=== PATIENT | male | born 1965 | race Caucasian/White ===

== ENCOUNTER 2019-08-16 16:30 | Emergency (ER) | payer OTHER ==
[2019-08-16 16:36] VITALS: TEMP 97.9
[2019-08-16 17:14] LABS: Basophils # (A) 0.2 k/uL (0-0.2); Basophils % (A) 3 %; Eosinophils # (A) 0.8 k/uL (0-0.7); Eosinophils % (A) 10 %; HCT 46.2 % (39.0-53.0); HGB 15.4 gm/dL (13.0-17.5); Lymphocytes # (A) 1.9 k/uL (1.0-4.8); Lymphocytes % (A) 23 %; MCH 30.8 pg (25.0-35.0); MCHC 33.3 g/dL (31.0-37.0); MCV 92.3 fL (80.0-100.0); Monocytes # (A) 0.4 k/uL (0-1.0); Monocytes % (A) 5 %; Neutrophils # (A) 4.8 k/uL (1.3-7.7); Neutrophils % (A) 59 %; Platelet Count 337 k/uL (150-450); RBC 5.01 m/uL (4.30-5.90); RDW 12.7 % (11.5-15.5); WBC 8.2 k/uL (3.8-10.6)
[2019-08-16 17:30] LABS: ALT 30 U/L (21-72); AST 27 U/L (17-59); African American GFR (CKD) >90 (>60 ml/min/1.73 sqM); Albumin 4.2 g/dL (3.5-5.0); Alkaline Phosphatase 121 U/L (38-126); Anion Gap 8 mmol/L; Blood Urea Nitrogen 12 mg/dL (9-20); Calcium 9.1 mg/dL (8.4-10.2); Carbon Dioxide 25 mmol/L (22-30); Chloride 110 mmol/L (98-107); Glucose 115 mg/dL (74-99); Potassium 4.3 mmol/L (3.5-5.1); Sodium 143 mmol/L (137-145); Total Bilirubin 0.3 mg/dL (0.2-1.3); Total Protein 6.7 g/dL (6.3-8.2)
--- NOTE | 2019-08-16 17:41 | CT ---
EXAMINATION TYPE: CT brain wo con DATE OF EXAM: 08/16/2019 COMPARISON: None INDICATION: left sided weakness DLP: 1193.9 mGycm, Automated exposure control for dose reduction was used. CONTRAST: None CT of the brain is performed utilizing 3 mm thick sections through the posterior fossa and 3 mm thick sections through the remaining calvarium. Study is performed within 24 hours of arrival to the hosp [facility]. No abnormal hyperdensity is present to suggest an acute intracranial hemorrhage. No mass lesion is evident. No acute infarcts are evident. Ventricles and sulci are appropriate for the patient age. Paranasal sinuses and mastoid air cells within the [id number] are clear. IMPRESSIONS: 1. Normal CT Brain
--- NOTE | 2019-08-16 17:44 | XR ---
EXAMINATION TYPE: XR chest 2V DATE OF EXAM: 08/16/2019 COMPARISON: None INDICATION: Altered mental status TECHNIQUE: Frontal and lateral views of the chest are obtained. FINDINGS: The heart size is normal. The pulmonary vasculature is normal. The lungs are clear. IMPRESSION: 1. No acute pulmonary process.
[2019-08-16 17:45] LABS: INR 0.9 (<1.2); Partial Thromboplastin Time 23.8 sec (22.0-30.0); Prothrombin Time 10.1 sec (9.0-12.0)
--- NOTE | 2019-08-16 18:41 | ED ---
General Adult HPI - General Chief complaint: Neuro Symptoms/Deficit Stated complaint: Left Side Numbness Time Seen by Provider: 08/16/19 16:35 Source: patient Mode of arrival: wheelchair Limitations: no limitations - History of Present Illness Initial comments: The patient is a 53-year-old male who presents emergency department with reported paresthesias in his left upper extremity. He states he does have a history of TIA approximate 7 years ago. He does not take any medications. States that he continues to smoke and drink and is concerned that he is having a stroke. He admits to mild left upper extremity weakness. The patient is right-handed. He also admits that he has been drooling a little bit from the left side of his mouth. Denies any confusion or slurred speech. No headaches or visual changes. Denies any numbness or tingling in his left lower extremity. Denies any chest pain or shortness breath. No ripping or tearing sensation to his back. Denies any neck pain or paresthesias involve all 5 fingers and radiates up to the patient elbow. No fevers or chills. There are no other alleviating, precipitating or modifying factors. - Related Data Home Medications Medication Instructions Recorded Confirmed No Known Home Medications 08/16/19 08/16/19 Allergies Allergy/AdvReac Type Severity Reaction Status Date / Time No Known Allergies Allergy Verified 08/16/19 17:13 Review of Systems ROS Statement: Those systems with pertinent positive or pertinent negative responses have been documented in the HPI. ROS Other: All systems not noted in ROS Statement are negative. Past Medical History Additional Past Medical History / Comment(s): tia's History of Any Multi-Drug Resistant Organisms: None Reported Past Surgical History: No Surgical Hx Reported Past Psychological History: No Psychological Hx Reported Smoking Status: Current every day smoker Past Alcohol Use History: None Reported Past Drug Use History: Cocaine General Exam Limitations: no limitations General appearance: alert, in no apparent distress Head exam: Present: atraumatic, normocephalic, normal inspection Eye exam: Present: normal appearance, PERRL, EOMI. Absent: scleral icterus, conjunctival injection, periorbital swelling ENT exam: Present: normal exam, mucous membranes moist Neck exam: Present: normal inspection. Absent: tenderness, meningismus, lymp hadenopathy Respiratory exam: Present: normal lung sounds bilaterally. Absent: respiratory distress, wheezes, rales, rhonchi, stridor Cardiovascular Exam: Present: regular rate, normal rhythm, normal heart sounds. Absent: systolic murmur, diastolic murmur, rubs, gallop, clicks GI/Abdominal exam: Present: soft, normal bowel sounds. Absent: distended, tenderness, guarding, rebound, rigid Extremities exam: Present: normal inspection, full ROM, normal capillary refill. Absent: tenderness, pedal edema, joint swelling, calf tenderness Back exam: Present: normal inspection Neurological exam: Present: alert, oriented X3, CN II-XII intact Psychiatric exam: Present: normal affect, normal mood Skin exam: Present: warm, dry, intact, normal color. Absent: rash Course Vital Signs 08/16/19 08/16/19 08/16/19 16:33 16:49 17:00 Temperature 97.9 F Pulse Rate 72 78 72 Respiratory 18 24 21 Rate Blood Pressure 116/60 108/82 O2 Sat by Pulse 96 96 95 Oximetry 08/16/19 08/16/19 08/16/19 17:30 18:00 19:19 Temperature 97.9 F Pulse Rate 63 74 Respiratory 19 18 20 Rate Blood Pressure 98/80 98/80 120/76 O2 Sat by Pulse 94 L 98 Oximetry EKG Findings - EKG Comments: EKG Findings:: EKG demonstrates a normal sinus rhythm with ventricular rate 75. VA interval 126. QRS 86. QTC 442. There are no acute elevations or depressions concerning for ischemic changes Medical Decision Making - Medical Decision Making Upon arrival the patient is placed into room 1. As he has been having symptoms for the past week I do not activate a code stroke. I did recommend laboratory studies and a CT of the patient's brain. CBC, CMP and coags are unremarkable. Troponin is negative. The patient is sent over for a CT of his brain as well as CT angios which demonstrates no flow limiting stenosis. Normal jena of Jacobsen. I also performed a chest x-ray which demonstrates no acute cardiopulmo nary process. I did reevaluate the patient. He continues to complain of symptoms. I did recommend hospital admission for neurology evaluation and possible MRI. The patient refused stating that he needed to go home. I discussed the diagnosis, differential and treatment options. I did inform him of the risks of leaving and the patient is made aware. Risks include permanent disability and even . Patient understands this. He states that he will return to the emergency department when he is able to be admitted. Patient was discharged home with a guarded prognosis - Lab Data Result diagrams: 08/16/19 16:45 08/16/19 16:45 Lab Results 08/16/19 08/16/19 08/16/19 Range/Units 16:45 16:45 16:45 WBC 8.2 (3.8-10.6) k/uL RBC 5.01 (4.30-5.90) m/uL Hgb 15.4 (13.0-17.5) gm/dL Hct 46.2 (39.0-53.0) % MCV 92.3 (80.0-100.0) fL MCH 30.8 (25.0-35.0) pg MCHC 33.3 (31.0-37.0) g/dL RDW 12.7 (11.5-15.5) % Plt Count 337 (150-450) k/uL Neutrophils % 59 % Lymphocytes % 23 % Monocytes % 5 % Eosinophils % 10 % Basophils % 3 % Neutrophils # 4.8 (1.3-7.7) k/uL Lymphocytes # 1.9 (1.0-4.8) k/uL Monocytes # 0.4 (0-1.0) k/uL Eosinophils # 0.8 H (0-0.7) k/uL Basophils # 0.2 (0-0.2) k/uL PT 10.1 (9.0-12.0) sec INR 0.9 (<1.2) APTT 23.8 (22.0-30.0) sec Sodium 143 (137-145) mmol/L Potassium 4.3 (3.5-5.1) mmol/L Chloride 110 H (98-107) mmol/L Carbon Dioxide 25 (22-30) mmol/L Anion Gap 8 mmol/L BUN 12 (9-20) mg/dL Creatinine 0.76 (0.66-1.25) mg/dL Est GFR (CKD-EPI)AfAm >90 (>60 ml/min/1.73 sqM) Est GFR (CKD-EPI)NonAf >90 (>60 ml/min/1.73 sqM) Glucose 115 H (74-99) mg/dL Calcium 9.1 (8.4-10.2) mg/dL Total Bilirubin 0.3 (0.2-1.3) mg/dL AST 27 (17-59) U/L ALT 30 (21-72) U/L Alkaline Phosphatase 121 (38-126) U/L Troponin I (0.000-0.034) ng/mL Total Protein 6.7 (6.3-8.2) g/dL Albumin 4.2 (3.5-5.0) g/dL 08/16/19 Range/Units 16:45 WBC (3.8-10.6) k/uL RBC (4.30-5.90) m/uL Hgb (13.0-17.5) gm/dL Hct (39.0-53.0) % MCV (80.0-100.0) fL MCH (25.0-35.0) pg MCHC (31.0-37.0) g/dL RDW (11.5-15.5) % Plt Count (150-450) k/uL Neutrophils % % Lymphocytes % % Monocytes % % Eosinophils % % Basophils % % Neutrophils # (1.3-7.7) k/uL Lymphocytes # (1.0-4.8) k/uL Monocytes # (0-1.0) k/uL Eosinophils # (0-0.7) k/uL Basophils # (0-0.2) k/uL PT (9.0-12.0) sec INR (<1.2) APTT (22.0-30.0) sec Sodium (137-145) mmol/L Potassium (3.5-5.1) mmol/L Chloride (98-107) mmol/L Carbon Dioxide (22-30) mmol/L Anion Gap mmol/L BUN (9-20) mg/dL Creatinine (0.66-1.25) mg/dL Est GFR (CKD-EPI)AfAm (>60 ml/min/1.73 sqM) Est GFR (CKD-EPI)NonAf (>60 ml/min/1.73 sqM) Glucose (74-99) mg/dL Calcium (8.4-10.2) mg/dL Total Bilirubin (0.2-1.3) mg/dL AST (17-59) U/L ALT (21-72) U/L Alkaline Phosphatase (38-126) U/L Troponin I <0.012 (0.000-0.034) ng/mL Total Protein (6.3-8.2) g/dL Albumin (3.5-5.0) g/dL Disposition Clinical Impression: Paresthesia of left upper extremity Disposition: HOME SELF-CARE Condition: Serious Instructions (If sedation given, give patient instructions): Paresthesia (ED) Additional Instructions: I recommended hospital admission. You need to follow up with your primary care physician in 2-4 days. Return to the emergency for any new or worsening symptoms Is patient prescribed a controlled substance at d/c from ED?: No Referrals: None,Stated [Primary Care Provider] - 1-2 days Time of Disposition: 20:59
[2019-08-16 19:19] VITALS: BP 120/76; PULSE 74; RESP 20
--- NOTE | 2019-08-16 19:25 | CT ---
EXAMINATION TYPE: CT angio head neck DATE OF EXAM: 08/16/2019 HISTORY: left sided weakness COMPARISON: None CT DLP: 506.9 mGycm. Automated Exposure Control for Dose Reduction was Utilized. TECHNIQUE: CTA scan of the neck is performed with IV Contrast, patient injected with 65cc mL of Isov ue 370, axial images are obtained, coronal and sagittal reformatted images are reviewed. Three-D yenni nstructed images are created on an independent workstation and reviewed. Source images are reviewed. FINDINGS: Carotid/Vascular Structures: There is a three-vessel arch. Atheromatous plaquing is at the carotid bi furcations. No significant flow-limiting stenosis is evident. Vertebral arteries are codominant. Cervical of Jacobsen: Vertebral basilar system appears normal. Posterior cerebral vasculature is unrema rkable. Internal carotid arteries bifurcate normally into A1 and M1 segments. A2 segments are normal. The anterior communicating artery is patent. Posterior communicating arteries are not identified. IMPRESSION: 1. No flow-limiting stenosis bilateral carotid bifurcations. 2. Normal viejas of Jacobsen
== END 2019-08-16 21:12 | disposition home or self-care (01) ==
LOC: EC 16:30
DX: R20.2 Paresthesia of skin (principal); R29.898 Other symptoms and signs involving the musculoskeletal system; R29.810 Facial weakness; F17.200 Nicotine dependence, unspecified, uncomplicated; Z86.73 Personal history of transient ischemic attack (TIA), and cerebral infarction without residual deficits; Z53.20 Procedure and treatment not carried out because of patient's decision for unspecified reasons
CPT/HCPCS: 99284; 36415; 93005; 80053; 84484; 85025; 85610; 85730; 71046; 70496; 70450; 70498; Q9967

== ENCOUNTER 2019-08-29 17:00 | Emergency (ER) | payer OTHER ==
[2019-08-29] MEDS ORDERED: IPRATROPIUM-ALBUTEROL 3 ML NEB INHALATION STA ×2 (17:16→17:17)
[2019-08-29] MEDS ORDERED: predniSONE 20 MG TAB PO STA (17:16)
--- NOTE | 2019-08-29 17:25 | ED ---
General Adult HPI - General Chief complaint: Shortness of Breath Stated complaint: SOB Time Seen by Provider: 08/29/19 17:08 Source: patient Mode of arrival: ambulatory Limitations: no limitations - History of Present Illness Initial comments: Patient presents to the ED complaining of feeling dyspneic since last night. Patient also states that he has had a cough productive of green-colored sputum for the past 2 days. Patient also admits to having diffuse chest pain when coughing. Patient states that he has been a 3-5 pack-a-day smoker for the past 35 years. Patient denies fever or chills, headache, neck/arm/jaw/back pain, hemoptysis, palpitations, dizziness or lightheadedness, nausea/vomiting/diaphoresis, abdominal pain, bloody or melanotic stool, decreased urine output or urinary symptoms, leg or calf swelling or tenderness, or any other symptoms or complaints. - Related Data Previous Rx's Medication Instructions Recorded Albuterol Inhaler [Ventolin Hfa 2 puff INHALATION Q4HR PRN #1 08/29/19 Inhaler] inhaler Doxycycline Hyclate 100 mg PO BID 7 Days #14 tab 08/29/19 predniSONE 50 mg PO DAILY #5 tablet 08/29/19 Allergies Allergy/AdvReac Type Severity Reaction Status Date / Time No Known Allergies Allergy Verified 08/16/19 17:13 Review of Systems ROS Statement: Those systems with pertinent positive or pertinent negative responses have been documented in the HPI. ROS Other: All systems not noted in ROS Statement are negative. Past Medical History Past Medical History: COPD Additional Past Medical History / Comment(s): tia's History of Any Multi-Drug Resistant Organisms: None Reported Past Surgical History: No Surgical Hx Reported Past Psychological History: No Psychological Hx Reported Smoking Status: Current every day smoker Past Alcohol Use History: None Reported Past Drug Use History: Cocaine General Exam Limitations: no limitations General appearance: alert Head exam: Present: atraumatic, normocephalic Eye exam: Present: normal appearance, EOMI ENT exam: Present: mucous membranes moist Neck exam: Present: other (Trachea is in midline) Respiratory exam: Present: decreased breath sounds, prolonged expiratory, other (Patient is mildly tachypneic; patient has moderate inspiratory and expiratory wheezes bilaterally). Absent: rales, rhonchi, stridor Cardiovascular Exam: Present: regular rate, normal rhythm, normal heart sounds, other (Normal radial pulses bilaterally) GI/Abdominal exam: Present: soft. Absent: distended, tenderness Extremities exam: Absent: tenderness, pedal edema, calf tenderness Neurological exam: Present: alert, oriented X3. Absent: motor sensory deficit Psychiatric exam: Present: normal affect, normal mood Skin exam: Present: warm, dry, intact, normal color Course Vital Signs 08/29/19 08/29/19 08/29/19 17:03 17:51 18:01 Temperature 97.7 F Pulse Rate 77 76 88 Respiratory 22 Rate Blood Pressure 140/85 O2 Sat by Pulse 96 Oximetry - Reevaluation(s) Reevaluation #1: 08/29/19 18:54 Patient states that his dyspnea has now improved. Patient has received 2 DuoNeb treatments while in the ED. Patient's wheezing has now resolved on exam, and he is now breathing comfortably. Patient is aware of his test results, and he feels comfortable going home at this time. He was clearly explained return and follow-up instructions. He feels comfortable with this plan. EKG Findings - EKG Comments: EKG Findings:: Normal sinus rhythm, no ectopy, ventricular rate of 75 bpm, normal ME and QRS intervals, normal QT interval, normal axis, no ST or T-wave abnormality Medical Decision Making - Medical Decision Making Patient's labs are fairly unremarkable. Patient's symptoms, physical examination and chest x-ray findings are consistent with COPD exacerbation. Patient was given 2 DuoNeb treatments in the ED with significant clinical improv ement. Patient was counseled about COPD, and he feels comfortable going home at this time. He was clearly explained return and follow-up instructions. He was provided with prescriptions for a course of doxycycline, albuterol inhaler and a short course of prednisone. He was also instructed to quit smoking. - Lab Data Result diagrams: 08/29/19 17:20 08/29/19 17:20 Lab Results 08/29/19 08/29/19 08/29/19 Range/Units 17:20 17:20 17:20 WBC 10.6 (3.8-10.6) k/uL RBC 4.82 (4.30-5.90) m/uL Hgb 15.0 (13.0-17.5) gm/dL Hct 44.2 (39.0-53.0) % MCV 91.6 (80.0-100.0) fL MCH 31.1 (25.0-35.0) pg MCHC 34.0 (31.0-37.0) g/dL RDW 12.6 (11.5-15.5) % Plt Count 352 (150-450) k/uL Neutrophils % 73 % Lymphocytes % 13 % Monocytes % 5 % Eosinophils % 6 % Basophils % 2 % Neutrophils # 7.7 (1.3-7.7) k/uL Lymphocytes # 1.3 (1.0-4.8) k/uL Monocytes # 0.6 (0-1.0) k/uL Eosinophils # 0.6 (0-0.7) k/uL Basophils # 0.2 (0-0.2) k/uL PT (9.0-12.0) sec INR (<1.2) APTT (22.0-30.0) sec Sodium 140 (137-145) mmol/L Potassium 4.5 (3.5-5.1) mmol/L Chloride 107 (98-107) mmol/L Carbon Dioxide 26 (22-30) mmol/L Anion Gap 7 mmol/L BUN 13 (9-20) mg/dL Creatinine 0.65 L (0.66-1.25) mg/dL Est GFR (CKD-EPI)AfAm >90 (>60 ml/min/1.73 sqM) Est GFR (CKD-EPI)NonAf >90 (>60 ml/min/1.73 sqM) Glucose 104 H (74-99) mg/dL Plasma Lactic Acid Toney (0.7-2.0) mmol/L Calcium 9.2 (8.4-10.2) mg/dL Total Bilirubin 0.2 (0.2-1.3) mg/dL AST 23 (17-59) U/L ALT 29 (21-72) U/L Alkaline Phosphatase 106 (38-126) U/L Troponin I (0.000-0.034) ng/mL NT-Pro-B Natriuret Pep 28 pg/mL Total Protein 7.1 (6.3-8.2) g/dL Albumin 4.1 (3.5-5.0) g/dL 11/23/19 11/23/19 11/23/19 Range/Units 17:20 17:20 17:20 WBC (3.8-10.6) k/uL RBC (4.30-5.90) m/uL Hgb (13.0-17.5) gm/dL Hct (39.0-53.0) % MCV (80.0-100.0) fL MCH (25.0-35.0) pg MCHC (31.0-37.0) g/dL RDW (11.5-15.5) % Plt Count (150-450) k/uL Neutrophils % % Lymphocytes % % Monocytes % % Eosinophils % % Basophils % % Neutrophils # (1.3-7.7) k/uL Lymphocytes # (1.0-4.8) k/uL Monocytes # (0-1.0) k/uL Eosinophils # (0-0.7) k/uL Basophils # (0-0.2) k/uL PT 9.7 (9.0-12.0) sec INR 0.9 (<1.2) APTT 24.3 (22.0-30.0) sec Sodium (137-145) mmol/L Potassium (3.5-5.1) mmol/L Chloride (98-107) mmol/L Carbon Dioxide (22-30) mmol/L Anion Gap mmol/L BUN (9-20) mg/dL Creatinine (0.66-1.25) mg/dL Est GFR (CKD-EPI)AfAm (>60 ml/min/1.73 sqM) Est GFR (CKD-EPI)NonAf (>60 ml/min/1.73 sqM) Glucose (74-99) mg/dL Plasma Lactic Acid Toney 0.7 (0.7-2.0) mmol/L Calcium (8.4-10.2) mg/dL Total Bilirubin (0.2-1.3) mg/dL AST (17-59) U/L ALT (21-72) U/L Alkaline Phosphatase (38-126) U/L Troponin I <0.012 (0.000-0.034) ng/mL NT-Pro-B Natriuret Pep pg/mL Total Protein (6.3-8.2) g/dL Albumin (3.5-5.0) g/dL - Radiology Data Radiology results: image reviewed (Chest x-ray shows hyperinflation, otherwise no acute cardiopulmonary disease) Disposition Clinical Impression: COPD exacerbation Disposition: HOME SELF-CARE Condition: Stable Instructions (If sedation given, give patient instructions): COPD (Chronic Ob structive Pulmonary Disease) (ED), Shortness of Breath (ED) Additional Instructions: Return to the ER immediately should you develop increased shortness of breath, new or worsening pain, a fever, feeling dizzy or faint, or new or worsening symptoms. Prescriptions: Doxycycline Hyclate 100 mg PO BID 7 Days #14 tab predniSONE 50 mg PO DAILY #5 tablet Albuterol Inhaler [Ventolin Hfa Inhaler] 2 puff INHALATION Q4HR PRN #1 inhaler PRN Reason: Dyspnea Is patient prescribed a controlled substance at d/c from ED?: No Referrals: Jarocho De Souza MD [REFERRING] - 1-2 days Time of Disposition: 18:41
--- NOTE | 2019-08-29 17:41 | XR ---
EXAMINATION TYPE: XR chest 2V DATE OF EXAM: 08/29/2019 COMPARISON: 08/16/2019 HISTORY: 53 year-old male shortness of breath, difficulty breathing TECHNIQUE: PA and lateral views FINDINGS: The heart is normal size. Aorta and pulmonary vasculature within normal limits. Hazy mid lung density is related to overlying soft tissue. Mild hyperinflation. No consolidation or pleural effusion. IMPRESSION: Hyperinflation may relate to depth of inspiration or underlying emphysema. Correlate for possible ENGINEERING SPECIALIST TECHNICIAN D. Otherwise, no acute cardiopulmonary process.
[2019-08-29 17:49] LABS: ALT 29 U/L (21-72); AST 23 U/L (17-59); African American GFR (CKD) >90 (>60 ml/min/1.73 sqM); Albumin 4.1 g/dL (3.5-5.0); Alkaline Phosphatase 106 U/L (38-126); Anion Gap 7 mmol/L; Blood Urea Nitrogen 13 mg/dL (9-20); Calcium 9.2 mg/dL (8.4-10.2); Carbon Dioxide 26 mmol/L (22-30); Chloride 107 mmol/L (98-107); Glucose 104 mg/dL (74-99); Non-African American GFR(CKD) >90 (>60 ml/min/1.73 sqM); Potassium 4.5 mmol/L (3.5-5.1); Sodium 140 mmol/L (137-145); Total Bilirubin 0.2 mg/dL (0.2-1.3); Total Protein 7.1 g/dL (6.3-8.2)
[2019-08-29 17:56] LABS: Basophils # (A) 0.2 k/uL (0-0.2); Basophils % (A) 2 %; Eosinophils # (A) 0.6 k/uL (0-0.7); Eosinophils % (A) 6 %; HCT 44.2 % (39.0-53.0); Lymphocytes # (A) 1.3 k/uL (1.0-4.8); Lymphocytes % (A) 13 %; MCH 31.1 pg (25.0-35.0); MCV 91.6 fL (80.0-100.0); Mean Platelet Volume 6.2; Monocytes # (A) 0.6 k/uL (0-1.0); Monocytes % (A) 5 %; Neutrophils # (A) 7.7 k/uL (1.3-7.7); Neutrophils % (A) 73 %; Platelet Count 352 k/uL (150-450); RBC 4.82 m/uL (4.30-5.90); RDW 12.6 % (11.5-15.5); WBC 10.6 k/uL (3.8-10.6)
[2019-08-29 18:07] LABS: INR 0.9 (<1.2); Partial Thromboplastin Time 24.3 sec (22.0-30.0); Prothrombin Time 9.7 sec (9.0-12.0)
[2019-08-29 19:21] VITALS: BP 132/75; PULSE 94; RESP 18; TEMP 100
== END 2019-08-29 19:15 | disposition home or self-care (01) ==
LOC: EC 17:00
DX: J44.1 Chronic obstructive pulmonary disease with (acute) exacerbation (principal); F17.210 Nicotine dependence, cigarettes, uncomplicated; Z71.6 Tobacco abuse counseling
CPT/HCPCS: 36415; 94640; 93005; 83880; 80053; 83605; 84484; 85025; 85610; 85730; 87040; 71046; 99285; J7512

== ENCOUNTER 2020-03-09 00:58 | Emergency (ER) | payer OTHER ==
[2020-03-09 01:11] VITALS: RESP 18; TEMP 98.9
--- NOTE | 2020-03-09 01:41 | ED ---
SOB HPI - General Chief Complaint: Shortness of Breath Stated Complaint: EMILIANA Time Seen by Provider: 03/09/20 01:05 Source: patient, EMS Mode of arrival: EMS - History of Present Illness Initial Comments: This patient is a 54-year-old man brought by ambulance to be valid for shortness of breath. The patient states that it had started this morning. He had gotten up to use the bathroom and then had gone back to bed. He states that he thought hard to catch his breath. The patient notes that he had a similar episode to this and was seen here and told that they suspect he has some COPD. He smokes approximately 2 packs cigarettes per day. Patient denies chest pain, productive cough, fever or chills. He states that he does have daily nonproductive cough that he attributes to smoking. No change in urination or bowel movements. No leg pain or swelling. MD Complaint: shortness of breath, cough Onset/Timin -: hour(s) Severity scale (1-10): 0 Consistency: now resolved Improves With: nothing Worsens With: nothing Associated Symptoms: cough Treatments Prior to Arrival: oxygen, bronchodilator - Related Data Home Oxygen Therapy: No Previous Rx's Medication Instructions Recorded Albuterol Inhaler (Mhu) [Ventolin 2 puff INHALATION Q4HR PRN #1 08/29/19 Hfa Inhaler (Mhu)] inhaler Doxycycline Hyclate 100 mg PO BID 7 Days #14 tab 08/29/19 predniSONE 50 mg PO DAILY #5 tablet 08/29/19 Albuterol Inhaler [Ventolin Hfa 2 puff INHALATION Q4H PRN #1 puff 03/09/20 Inhaler] predniSONE [Deltasone] 20 mg PO BID #8 tab 03/09/20 Allergies Allergy/AdvReac Type Severity Reaction Status Date / Time No Known Allergies Allergy Verified 03/09/20 01:11 Review of Systems ROS Statement: Those systems with pertinent positive or pertinent negative responses have been documented in the HPI. ROS Other: All systems not noted in ROS Statement are negative. Constitutional: Denies: fever, chills Respiratory: Reports: cough, dyspnea, wheezes. Denies: hemoptysis Cardiovascular: Denies: chest pain, palpitations, orthopnea, edema Gastrointestinal: Denies: abdominal pain, nausea, vomiting Genitourinary: Denies: dysuria, hematuria Musculoskeletal: Denies: back pain Skin: Denies: rash Neurological: Denies: headache, weakness, numbness Past Medical History Past Medical History: COPD Additional Past Medical History / Comment(s): tia's History of Any Multi-Drug Resistant Organisms: None Reported Past Surgical History: No Surgical Hx Reported Past Psychological History: No Psychological Hx Reported Smoking Status: Current every day smoker Past Alcohol Use History: None Reported Past Drug Use History: Cocaine General Exam General appearance: alert, in no apparent distress Head exam: Present: atraumatic, normocephalic Eye exam: Present: normal appearance. Absent: scleral icterus, conjunctival injection ENT exam: Present: normal oropharynx Neck exam: Present: normal inspection Respiratory exam: Present: wheezes. Absent: respiratory distress, rales, rhonchi, stridor, accessory muscle use, decreased breath sounds, prolonged expiratory Cardiovascular Exam: Present: regular rate, normal rhythm, normal heart sounds. Absent: systolic murmur, diastolic murmur, rubs, gallop GI/Abdominal exam: Present: soft. Absent: distended, tenderness, guarding, rebound, rigid Extremities exam: Present: normal inspection, normal capillary refill. Absent: pedal edema, calf tenderness Back exam: Present: normal inspection. Absent: CVA tenderness (R), CVA tenderness (L) Neurological exam: Present: alert Skin exam: Present: warm, dry, intact, normal color. Absent: rash Course Vital Signs 03/09/20 01:07 Temperature 98.9 F Pulse Rate 66 Respiratory 18 Rate Blood Pressure 102/64 O2 Sat by Pulse 96 Oximetry Medical Decision Making - EKG Data -: EKG Interpreted by [place] EKG shows normal: sinus rhythm, axis (Normal), intervals (Normal), QRS complexes (Normal), ST-T waves (Normal) Rate: normal (Rate 61 bpm) Interpretation: normal EKG Disposition Clinical Impression: COPD exacerbation Disposition: HOME SELF-CARE Condition: Good Instructions (If sedation given, give patient instructions): COPD (Chronic Obstructive Pulmonary Disease) (ED) Prescriptions: predniSONE [Deltasone] 20 mg PO BID #8 tab Albuterol Inhaler [Ventolin Hfa Inhaler] 2 puff INHALATION Q4H PRN #1 puff PRN Reason: Shortness Of Breath Is patient prescribed a controlled substance at d/c from ED?: No Referrals: None,Stated [Primary Care Provider] - 1-2 days Moe Telles MD [STAFF PHYSICIAN] - 1-2 days
--- NOTE | 2020-03-09 01:48 | XR ---
EXAMINATION TYPE: XR chest 2V DATE OF EXAM: 03/09/2020 COMPARISON: 08/29/2019 short of breath HISTORY: Short of breath TECHNIQUE: 2 views FINDINGS: Heart and mediastinum are normal. Lungs are clear. Diaphragm is normal. Bony thorax appears normal IMPRESSION: Normal chest. No change.
[2020-03-09] MEDS ORDERED: predniSONE 20 MG TAB PO STA (02:29)
[2020-03-09 02:49] VITALS: BP 112/72; PULSE 84
== END 2020-03-09 02:47 | disposition home or self-care (01) ==
LOC: EC 00:58
DX: J44.1 Chronic obstructive pulmonary disease with (acute) exacerbation (principal); F17.210 Nicotine dependence, cigarettes, uncomplicated; Z99.81 Dependence on supplemental oxygen
CPT/HCPCS: 71046; 99285; J7512

== ENCOUNTER 2021-10-26 16:49 | Emergency (ER) | payer OTHER ==
[2021-10-26] MEDS ORDERED: IPRATROPIUM-ALBUTEROL 3 ML NEB INHALATION STA (17:22)
--- NOTE | 2021-10-26 17:29 | ED ---
General Adult HPI - General Chief complaint: Urogenital Stated complaint: Testicular swelling Time Seen by Provider: 10/26/21 17:11 Source: patient, RN notes reviewed Mode of arrival: ambulatory Limitations: no limitations - History of Present Illness Initial comments: Patient is a pleasant 6-year-old male presenting to the emergency department with concerns regarding testicular swelling. Patient states onset was over a year ago. Patient states there is no significant discomfort with this. Patient denies any trauma. Patient denies any discharge or color change. Patient believes this is in the middle. Patient also complains of some mild dyspnea. Patient is a chronic smoker and has history of this previously. No fever. Patient previously has used nebulizers with success. Patient is also previously used inhalers. - Related Data Previous Rx's Medication Instructions Recorded Albuterol Inhaler (Mhu) [Ventolin 2 puff INHALATION Q4HR PRN #1 08/29/19 Hfa Inhaler (Mhu)] inhaler Doxycycline Hyclate 100 mg PO BID 7 Days #14 tab 08/29/19 predniSONE 50 mg PO DAILY #5 tablet 08/29/19 Albuterol Inhaler [Ventolin Hfa 2 puff INHALATION Q4H PRN #1 puff 03/09/20 Inhaler] predniSONE [Deltasone] 20 mg PO BID #8 tab 03/09/20 Albuterol Sulfate [Albuterol 2 puff INHALATION Q6H PRN #8.5 gm 10/26/21 Sulfate Hfa] predniSONE [Deltasone] 20 mg PO BID #10 tab 10/26/21 Allergies Allergy/AdvReac Type Severity Reaction Status Date / Time No Known Allergies Allergy Verified 10/26/21 17:07 Review of Systems ROS Statement: Those systems with pertinent positive or pertinent negative responses have been documented in the HPI. ROS Other: All systems not noted in ROS Statement are negative. Constitutional: Denies: fever Eyes: Denies: eye pain ENT: Denies: ear pain Respiratory: Reports: as per HPI, wheezes. Denies: cough Cardiovascular: Denies: chest pain Endocrine: Denies: fatigue Gastrointestinal: Denies: abdominal pain Genitourinary: Reports: as per HPI, testicular mass. Denies: testicular pain Musculoskeletal: Denies: back pain Skin: Denies: rash Neurological: Denies: weakness Past Medical History Past Medical History: COPD Additional Past Medical History / Comment(s): tia's History of Any Multi-Drug Resistant Organisms: None Reported Past Surgical History: No Surgical Hx Reported Past Psychological History: No Psychological Hx Reported Smoking Status: Current every day smoker Past Alcohol Use History: None Reported Past Drug Use History: Cocaine General Exam Limitations: no limitations General appearance: alert, in no apparent distress Head exam: Present: normocephalic Eye exam: Present: normal appearance Neck exam: Present: normal inspection Respiratory exam: Present: wheezes (Mild expiratory wheeze). Absent: respiratory distress, accessory muscle use Cardiovascular Exam: Present: regular rate, normal rhythm GI/Abdominal exam: Present: soft. Absent: tenderness exam: Present: scrotal swelling (Right-sided, moderate). Absent: testicular tenderness Extremities exam: Present: normal inspection Back exam: Present: normal inspection Neurological exam: Present: alert Psychiatric exam: Present: normal affect, normal mood Skin exam: Present: normal color Course Vital Signs 10/26/21 10/26/21 10/26/21 17:05 18:24 18:35 Temperature 98 F Pulse Rate 80 76 72 Respiratory 16 Rate Blood Pressure 128/72 O2 Sat by Pulse 95 Oximetry Medical Decision Making - Medical Decision Making Patient reevaluated and resting comfortably in bed. Patient is updated on results and need for follow-up. - Radiology Data Radiology results: image reviewed (Ultrasound of testicles shows large hydrocele) Disposition Clinical Impression: Hydrocele, COPD (chronic obstructive pulmonary disease) Disposition: HOME SELF-CARE Condition: Stable Instructions (If sedation given, give patient instructions): COPD (Chronic Obstructive Pulmonary Disease) (ED), Hydrocele (ED) Additional Instructions: Please do follow-up with primary care physician in the next day or 2 for recheck. Please also follow-up with urology, number provided. Prescriptions have been sent to pharmacy. Return for difficulty breathing, fevers, increased testicular pain or swelling. Prescriptions: Albuterol Sulfate [Albuterol Sulfate Hfa] 2 puff INHALATION Q6H PRN #8.5 gm PRN Reason: Shortness Of Breath predniSONE [Deltasone] 20 mg PO BID #10 tab Is patient prescribed a controlled substance at d/c from ED?: No Referrals: Jaja Lozano MD [REFERRING] - 1-2 days Eligio Zarate MD [STAFF PHYSICIAN] - 1-2 days Time of Disposition: 18:55
--- NOTE | 2021-10-26 18:38 | US ---
EXAMINATION TYPE: US scrotum with doppler. Grayscale and color Doppler Duplex imaging performed of denita lindsay scrotum. DATE OF EXAM: 10/26/2021 COMPARISON: NONE CLINICAL HISTORY: r swelling. Right-sided swelling. No pain. EXAM MEASUREMENTS: TESTICLES: Right Testicle: 5.2 x 3.6 x 3.3 cm Left Testicle: 5.3 x 3.4 x 2.5 cm *Hyperechoic focus seen within left testicle: 0.08 x 0.09 x 0.07 cm consistent with microlith. EPIDIDYMIS HEAD: Right Epididymis: Unable to visualize. Left Epididymis: 1.4 x 1.5 x 1.0 cm. Appears heterogeneous. Doppler performed to assess for testicular vascularity; bilateral color flow and waveforms are seen. Presence of hydroceles: Large complex fluid collection seen on the right: 8.8 x 9.5 x 5.3 cm. Fluid seen on left: 3.8 x 3.5 x 0.7 cm. Presence of varicoceles: Not seen, difficult to evaluate due to fluid collection. IMPRESSION: 1. Large right hydrocele with septations. 2. Arterial and venous flow to the testes bilaterally.
[2021-10-26 19:24] VITALS: BP 123/72; PULSE 83; RESP 18; TEMP 98.1
== END 2021-10-26 18:59 | disposition home or self-care (01) ==
LOC: EC 16:49
DX: N43.3 Hydrocele, unspecified (principal); J44.9 Chronic obstructive pulmonary disease, unspecified; F17.200 Nicotine dependence, unspecified, uncomplicated
CPT/HCPCS: 76870; 93975; 94640; 99285

== ENCOUNTER → 2021-12-22 | Outpatient (CLI) | payer OTHER ==
[2021-12-22 14:50] LABS: Appearance,Urine Clear (Clear); Basophils # (A) 0.05 X 10*3/uL (0.00-0.10); Basophils % (A) 0.8 %; Bilirubin,Urine Negative (Negative); Blood,Urine Negative (Negative); Color,Urine Yellow (Yellow); Eosinophils # (A) 0.16 X 10*3/uL (0.04-0.35); Eosinophils % (A) 2.6 %; HCT 47.8 % (39.6-50.0); HGB 14.9 g/dL (13.0-17.0); Immature Grans, Automated 0.3 %; Ketones,Urine Negative (Negative); Leukocyte Esterase,Urine Negative (Negative); Lymphocytes # (A) 1.72 X 10*3/uL (0.90-5.00); Lymphocytes % (A) 27.5 %; MCH 29.9 pg (27.0-32.0); MCHC 31.2 g/dL (32.0-37.0); MCV 95.8 fL (80.0-97.0); Mean Platelet Volume 10.7 fL (9.5-12.2); Monocytes # (A) 0.49 X 10*3/uL (0.20-1.00); Monocytes % (A) 7.8 %; NRBC Per 100 WBC 0 /100 WBCS (0.0-0.0); Neutrophils # (A) 3.82 X 10*3/uL (1.80-7.70); Nitrite,Urine Negative (Negative); Platelet Count 275 X 10*3/uL (140-440); Protein,Urine Negative (Negative); RBC 4.99 X 10*6/uL (4.40-5.60); RDW 12.7 % (11.5-14.5); Urobilinogen,Urine 0.2 (0.2,1.0); WBC 6.26 X 10*3/uL (4.50-10.00)
[2021-12-22 15:56] LABS: African American GFR (CKD) 114.9 (60.0-200.0); Anion Gap 9.2 mmol/L (10.00-18.00); BUN/Creat Ratio 11.63 Ratio (12.00-20.00); Blood Urea Nitrogen 9.3 mg/dL (9.0-27.0); Calcium 9.2 mg/dL (8.7-10.3); Carbon Dioxide 27.8 mmol/L (20.0-27.5); Non-African American GFR(CKD) 99.2 (60.0-200.0); Potassium 4.4 mmol/L (3.5-5.5)
== END | disposition home or self-care (01) ==
LOC: LABPAT 08:34
PROVIDERS: ATTEND Urology
DX: Z01.812 Encounter for preprocedural laboratory examination (principal); N43.0 Encysted hydrocele
CPT/HCPCS: 80048; 81003; 85025

== ENCOUNTER 2021-12-27 08:12 | Day surgery (SDC) | payer OTHER ==
[2021-12-25 08:33] VITALS: BMI 24.3
--- NOTE | 2021-12-26 19:33 | P.GSHP ---
History of Present Illness H&P Date: 12/26/21 56 yo male with a large right hydrocele who comes for right hydrocelectomy because of symptoms. He was seen by Dr Vora to see if he felt this was an indirect hernia hydrocele but he doubted. He recommended that I proceed with a hydrocelectomy He comes for this procedure. the risks and complications including infection, bleeding hematoma abscess, loss of testicle among others have been explained understood and accepted. - Constitutional Constitutional: Denies chills, Denies fever - EENT Eyes: denies blurred vision, denies pain Ears, nose, mouth and throat: Denies headache, Denies sore throat - Cardiovascular Cardiovascular: Denies chest pain, Denies shortness of breath - Respiratory Respiratory: Denies cough, Denies 7 - Gastrointestinal Gastrointestinal: Denies abdominal pain, Denies diarrhea, Denies nausea, Denies vomiting - Genitourinary (Female) Genitourinary: Denies dysuria, Denies hematuria - Genitourinary (Male) Genitourinary: Denies dysuria, Denies hematuria - Musculoskeletal Musculoskeletal: Denies myalgias - Integumentary Integumentary: Denies pruritus, Denies rash - Neurological Neurological: Denies numbness, Denies weakness - Psychiatric Psychiatric: Denies anxiety, Denies depression - Endocrine Endocrine: Denies fatigue, Denies weight change Past Medical History Past Medical History: COPD Additional Past Medical History / Comment(s): Hx TIA's. History of Any Multi-Drug Resistant Organisms: None Reported Past Surgical History: No Surgical Hx Reported Past Anesthesia/Blood Transfusion Reactions: No Reported Reaction Additional Past Anesthesia/Blood Transfusion Reaction / Comment(s): Has never had anesthesia. Past Psychological History: No Psychological Hx Reported Smoking Status: Current every day smoker, Heavy tobacco smoker Past Alcohol Use History: None Reported Additional Past Alcohol Use History / Comment(s): Has been a heavy smoker for 40 yrs. Past Drug Use History: None Reported - Past Family History Mother Family Medical History: No Reported History Medications and Allergies Home Medications Medication Instructions Recorded Confirmed Type No Known Home Medications 12/25/21 12/25/21 History Allergies Allergy/AdvReac Type Severity Reaction Status Date / Time No Known Allergies Allergy Verified 12/25/21 08:34 Surgical - Exam - General well developed, well nourished, no distress - Eyes PERRL - ENT no hearing loss - Neck trachea midline - Respiratory normal expansion, normal respiratory effort - Cardiovascular Rhythm: regular - Abdomen Abdomen: soft, non tender Hernia: inguinal - Genitourinary large right hydrocele - Integumentary no growths - Musculoskeletal normal gait, normal posture - Psychiatric oriented to time, oriented to person, oriented to place, speech is normal, memory intact Results - Imaging US - pelvic: report reviewed, image reviewed Assessment and Plan Assessment: Impression. Large right hydrocele, non communicating [facility] Plan Right hydrocelectomy
[~2021-12-27 08:12] MED LIST: DEXAMETHASONE SOD PHOSPHATE 4 MG/ML 1 ML VIAL IV ONE; HYDROmorphone 0.5 MG/0.5 ML SYRINGE IVP PRN; LACTATED RINGERS 1,000 ML IV SCH; LIDOCAINE 1% (10MG/ML) FOR IV START INTRADERMA PRN; ONDANSETRON 4 MG/2 ML VIAL IVP ONE; Pre Op ABX Message 1 EACH MISC MISCELLANE ONE
[2021-12-27] MEDS ORDERED: IPRATROPIUM-ALBUTEROL 3 ML NEB INHALATION STA (08:51)
[2021-12-27] MEDS ORDERED: PROPOFOL 10 MG/ML 20 ML VIAL IV ONE (10:32)
[2021-12-27] MEDS ORDERED: LIDOCAINE 1% INJ 10MG/ML (20 ML MDV) ONE (10:32)
[2021-12-27] MEDS ORDERED: MIDAZOLAM 2 MG/2 ML VIAL ONE (10:32)
[2021-12-27] MEDS ORDERED: fentaNYL (PF) 50 MCG/ML 2 ML AMP ONE (10:32)
[2021-12-27] MEDS ORDERED: BUPIVACAINE (PF) 0.5% 30 ML VIAL SQ ONE ×2 (11:07)
--- NOTE | 2021-12-27 11:32 | P.OP ---
Date of Procedure: 12/27/21 Preoperative Diagnosis: Right hydrocele, large Postoperative Diagnosis: Same, possible indirect hernia Procedure(s) Performed: Right hydrocelectomy Anesthesia: STEPHEN Surgeon: Zachary Olson Pathology: other (Hydrocele sac) Condition: stable Disposition: PACU Indications for Procedure: Patient is 56. He is a large right hydrocele. There is a question of an indirect hernia. He is seen by general surgery and they were convinced it. He thus comes for right hydrocelectomy. Description of Procedure: Patient brought to the operating suite. Given general anesthesia. Prepped and draped sterilely. Midline scrotal incision is made. I dissect down through the tunica vaginalis and it is opened up. About 400 mL of clear yellow fluid is drained. The testicles inspected and is normal. The hydrocele somewhat loculated but there is no obvious infection. There is a question of an indirect hernia. I excised the redundant hydrocele. The edges oversewn with 3-0 chromic. I inspect to see if there is an indirect hernia and is indeterminate. I closed the inguinal canal with 3-0 Vicryl just in case. Testicles viable. He is placed back in the scrotum. 2 layers of 3-0 chromic in our clinic used to close the scrotum. 10 mL of half percent Sensorcaine plain block was admi nistered. The patient awake and returned recovery in good condition. Wound is dressed. A be discharged home upon recovery and found the office in one week
[2021-12-27 11:37] VITALS: TEMP 96.8
[2021-12-27 11:47] VITALS: RESP 16
[2021-12-27 12:21] VITALS: BP 134/56; PULSE 77
== END 2021-12-27 13:31 | disposition home or self-care (01) ==
LOC: OR 08:12
PROVIDERS: ATTEND Urology
DX: N43.3 Hydrocele, unspecified (principal); J44.9 Chronic obstructive pulmonary disease, unspecified; Z86.73 Personal history of transient ischemic attack (TIA), and cerebral infarction without residual deficits; F17.210 Nicotine dependence, cigarettes, uncomplicated; K00.0 Anodontia
CPT/HCPCS: 94640; 88302; 55060; J2250; J1100; J2405; J2001; J3010; J2704

== ENCOUNTER 2022-01-14 19:29 | Emergency (ER) | payer OTHER ==
[2022-01-14 19:33] VITALS: RESP 18; TEMP 97
--- NOTE | 2022-01-14 19:37 | ED ---
General Adult HPI - General Chief complaint: Urogenital Stated complaint: Post-op complication Time Seen by Provider: 01/14/22 19:37 Source: patient Mode of arrival: wheelchair Limitations: no limitations - History of Present Illness Initial comments: Patient had a right hydrocelectomy surgery performed by Dr. Olson (urology) 18 days ago, and he presents to the ED today complaining of having right-sided testicular/scrotal pain since earlier today. Patient states that his a portion of his surgical wound opened up after his surgery, but he never bothered notifying his surgeon about this. Patient states that since earlier today it has felt like the right side of his scrotum "is on fire". Patient denies wound drainage, fever or chills, trauma or injury, headache, chest pain, dyspnea, dizziness, abdominal pain, nausea/vomiting/diarrhea, dysuria or urinary symptoms, penile discharge, or any other symptoms or complaints. Patient states that he has a follow-up appointment scheduled to see Dr. Olson tomorrow. - Related Data Home Medications Medication Instructions Recorded Confirmed HYDROcodone/APAP 5-325MG [[place] 1 tab PO Q6H PRN 01/14/22 01/14/22 5-325] Previous Rx's Medication Instructions Recorded Sulfamethox-Tmp 800-160Mg [Bactrim 1 tab PO Q12HR 7 Days #14 tab 01/14/22 DS 800-160 mg] Allergies Allergy/AdvReac Type Severity Reaction Status Date / Time No Known Allergies Allergy Verified 01/14/22 21:01 Review of Systems ROS Statement: Those systems with pertinent positive or pertinent negative responses have been documented in the HPI. ROS Other: All systems not noted in ROS Statement are negative. Past Medical History Past Medical History: COPD Additional Past Medical History / Comment(s): tia's History of Any Multi-Drug Resistant Organisms: None Reported Past Surgical History: No Surgical Hx Reported, Hernia Repair Past Psychological History: No Psychological Hx Reported Smoking Status: Current every day smoker Past Drug Use History: Cocaine General Exam Limitations: no limitations General appearance: alert, in no apparent distress Head exam: Present: atraumatic, normocephalic Eye exam: Present: normal appearance ENT exam: Present: mucous membranes moist Respiratory exam: Present: normal lung sounds bilaterally. Absent: respiratory distress, wheezes, rales, rhonchi, stridor Cardiovascular Exam: Present: regular rate, normal rhythm, normal heart sounds, other (Normal radial pulses bilaterally) GI/Abdominal exam: Present: soft. Absent: distended, tenderness, guarding exam: Present: other (There is a 2 cm segment of the patient's midline scrotal surgical wound that is open-> no drainage or bleeding is noted; diffuse, firm scrotal induration is noted (right greater than left); right sided s crotal/testicular tenderness). Absent: urethral discharge Extremities exam: Absent: pedal edema Back exam: Absent: CVA tenderness (R), CVA tenderness (L) Neurological exam: Present: alert, oriented X3. Absent: motor sensory deficit Psychiatric exam: Present: normal affect, normal mood Skin exam: Present: warm, dry, intact, normal color Course Vital Signs 01/14/22 19:31 Temperature 97 F L Pulse Rate 85 Respiratory 18 Rate Blood Pressure 131/91 O2 Sat by Pulse 95 Oximetry - Reevaluation(s) Reevaluation #1: 01/14/22 23:46 Case, H&P and test results were discussed with Dr. Zarate (urology). He recommends starting the patient on a course of Keflex or Bactrim and discharging the patient home with instructions to keep his follow-up appointment with Dr. Olson that is scheduled for tomorrow. He feels that the patient's ultrasound findings probably reflect hematoma. He has no further recommendations at this time. 01/14/22 23:58 Patient states that his pain has improved with ED treatment, but he is requesting another dose of pain medications prior to ED discharge. Patient is aware of his test results and my discussion with Dr. Zarate as above. Patient feels comfortable being discharged home at this time. Patient states that he will get a ride home from the ED tonight. Patient was counseled about scrotal pain/hematoma, and he was clearly explained return and follow-up instructions. Patient was instructed to follow up with his urologist, Dr. Olson, tomorrow as scheduled, and he agrees to do so. Patient feels comfortable with this plan. Medical Decision Making - Medical Decision Making I suspect that the patient's pain and ultrasound findings are likely secondary to postoperative hematoma. Dr. Zarate was contacted from the ED, and he recommended empirically treating the patient with oral antibiotics and having the patient follow up with Dr. Olson at his scheduled appointment tomorrow. Will discharge patient home at this time. Patient feels comfortable with this plan. - Lab Data Result diagrams: 01/14/22 20:35 01/14/22 20:35 Lab Results 01/14/22 01/14/22 Range/Units 20:35 20:35 WBC 8.4 (3.8-10.6) k/uL RBC 5.19 (4.30-5.90) m/uL Hgb 15.4 (13.0-17.5) gm/dL Hct 48.3 (39.0-53.0) % MCV 93.1 (80.0-100.0) fL MCH 29.7 (25.0-35.0) pg MCHC 31.9 (31.0-37.0) g/dL RDW 12.4 (11.5-15.5) % Plt Count 390 (150-450) k/uL MPV 7.7 Neutrophils % 63 % Lymphocytes % 26 % Monocytes % 6 % Eosinophils % 5 % Basophils % 1 % Neutrophils # 5.3 (1.3-7.7) k/uL Lymphocytes # 2.1 (1.0-4.8) k/uL Monocytes # 0.5 (0-1.0) k/uL Eosinophils # 0.4 (0-0.7) k/uL Basophils # 0.1 (0-0.2) k/uL Sodium 139 (137-145) mmol/L Potassium 4.2 (3.5-5.1) mmol/L Chloride 102 (98-107) mmol/L Carbon Dioxide 30 (22-30) mmol/L Anion Gap 7 mmol/L BUN 18 (9-20) mg/dL Creatinine 0.78 (0.66-1.25) mg/dL Est GFR (CKD-EPI)AfAm >90 (>60 ml/min/1.73 sqM) Est GFR (CKD-EPI)NonAf >90 (>60 ml/min/1.73 sqM) Glucose 126 H (74-99) mg/dL Calcium 9.4 (8.4-10.2) mg/dL - Radiology Data Scrotal ultrasound: No testicular torsion. No testicular mass. Complex area adjacent to the right testicle could be an atypical varicocele. This measures 7.1 4.2 cm. Also consider epididymitis and unusual chronic hematoma. Disposition Clinical Impression: Postoperative pain, Scrotal hematoma Disposition: HOME SELF-CARE Condition: Stable Instructions (If sedation given, give patient instructions): Pain Management (ED), Hematoma (ED) Additional Instructions: Return to the ER immediately should you develop new or worsening pain, increased swelling, a fever, vomiting, shortness of breath, feeling dizzy or faint, or new or worsening symptoms. Follow up with Dr. Olson (your urologist) tomorrow as scheduled. Prescriptions: Sulfamethox-Tmp 800-160Mg [Bactrim DS 800-160 mg] 1 tab PO Q12HR 7 Days #14 tab Is patient prescribed a controlled substance at d/c from ED?: No Referrals: None,Stated [Primary Care Provider] - 1-2 days Zachary Olson MD [STAFF PHYSICIAN] - 1-2 days Time of Disposition: 00:02
[2022-01-14] MEDS ORDERED: SODIUM CHLORIDE 0.9% 500 ML 500 ML IV ONE (19:49)
[2022-01-14] MEDS ORDERED: HYDROmorphone 1 MG/ML 1 ML SYRINGE IVP STA ×2 (19:50→23:42)
[2022-01-14 20:53] LABS: Basophils # (A) 0.1 k/uL (0-0.2); Basophils % (A) 1 %; Eosinophils # (A) 0.4 k/uL (0-0.7); Eosinophils % (A) 5 %; HCT 48.3 % (39.0-53.0); HGB 15.4 gm/dL (13.0-17.5); Lymphocytes # (A) 2.1 k/uL (1.0-4.8); Lymphocytes % (A) 26 %; MCH 29.7 pg (25.0-35.0); MCHC 31.9 g/dL (31.0-37.0); MCV 93.1 fL (80.0-100.0); Mean Platelet Volume 7.7; Monocytes # (A) 0.5 k/uL (0-1.0); Monocytes % (A) 6 %; Neutrophils # (A) 5.3 k/uL (1.3-7.7); Neutrophils % (A) 63 %; Platelet Count 390 k/uL (150-450); RBC 5.19 m/uL (4.30-5.90); RDW 12.4 % (11.5-15.5); WBC 8.4 k/uL (3.8-10.6)
[2022-01-14 21:04] LABS: Chloride 102 mmol/L (98-107)
[2022-01-14 21:07] LABS: African American GFR (CKD) >90 (>60 ml/min/1.73 sqM); Anion Gap 7 mmol/L; Blood Urea Nitrogen 18 mg/dL (9-20); Calcium 9.4 mg/dL (8.4-10.2); Carbon Dioxide 30 mmol/L (22-30); Glucose 126 mg/dL (74-99); Non-African American GFR(CKD) >90 (>60 ml/min/1.73 sqM); Potassium 4.2 mmol/L (3.5-5.1); Sodium 139 mmol/L (137-145)
--- NOTE | 2022-01-14 23:39 | US ---
EXAMINATION TYPE: US scrotum with doppler. Grayscale and color Doppler Duplex imaging performed of denita lindsay scrotum. DATE OF EXAM: 01/14/2022 COMPARISON: NONE CLINICAL HISTORY: Testicular/scrotal pain status post hydrocelectomy 18 days prior. Patient had surgical wound open up a few days ago and is having extreme pain on the right. EXAM MEASUREMENTS: TESTICLES: Right Testicle: 5.3 x 3.8 x 3.5 cm Left Testicle: 4.9 x 3.3 x 3.1 cm EPIDIDYMIS HEAD: Right Epididymis: 1.1 cm Left Epididymis: 1.0 cm Doppler performed to assess for testicular vascularity; good bilateral color flow and waveforms are s een. There is no evidence of testicular torsion. Presence of hydroceles: loculated complex collection around right testicle with cystic areas and vascularity. Left shows 5.3 x 1.8 x 3.2cm hydrocele. Presence of varicoceles: unable to evaluate for varicoceles IMPRESSION: No testicular torsion. No testicular mass. Complex area adjacent to the right testicle co uld be an atypical varicocele. This measures 7.1 x 4.2 cm. Also consider epididymitis and unusual chr onic hematoma in this patient with recent surgery. Small left-sided hydrocele noted.
[2022-01-14] MEDS ORDERED: SULFAMETHOX-TMP 800-160MG 1 EACH TAB PO STA (23:48)
[2022-01-14] MEDS ORDERED: ACET/COD 300 MG/30 MG STARTER PACK 6 TAB BTL PO STA (23:49)
[2022-01-15 00:07] LABS: Appearance,Urine Clear (Clear); Bilirubin,Urine Negative (Negative); Blood,Urine Negative (Negative); Color,Urine Yellow; Glucose,Urine (UA) Negative (Negative); Ketones,Urine Negative (Negative); Leukocyte Esterase,Urine Negative (Negative); Nitrite,Urine Negative (Negative); Protein,Urine Trace (Negative); Specific Gravity,Urine 1.033 (1.001-1.035); Urobilinogen,Urine <2.0 mg/dL (<2.0)
[2022-01-15 00:19] VITALS: BP 140/84; PULSE 84
== END 2022-01-15 00:19 | disposition home or self-care (01) ==
LOC: EC 19:29
DX: S30.22XA Contusion of scrotum and testes, initial encounter (principal); G89.18 Other acute postprocedural pain; J44.9 Chronic obstructive pulmonary disease, unspecified; F17.200 Nicotine dependence, unspecified, uncomplicated; X58.XXXA Exposure to other specified factors, initial encounter
CPT/HCPCS: 99284; 96374; 96376; 36415; 80048; 85025; 81003; 93975; 76870; J1170

== ENCOUNTER 2024-04-26 19:11 | Emergency (ER) | payer OTHER ==
[2024-04-26 19:14] VITALS: TEMP 97.9
[2024-04-26] MEDS: methylPREDNISolone SOD SUCCI 125 MG/2 ML VIAL IV STA (19:31)
--- NOTE | 2024-04-26 19:32 | ED ---
SOB HPI - General Chief Complaint: Shortness of Breath Stated Complaint: COPD, EMILIANA, ankles swelling Time Seen by Provider: 04/26/24 19:15 Source: patient, RN notes reviewed Mode of arrival: wheelchair Limitations: no limitations - History of Present Illness Initial Comments: This is a 58-year-old male who presents to the emergency department for shortnes s of breath and lower extremity swelling. States that over the last couple of months he has had worsening shortness of breath related to COPD. He is using his nebulizer treatments and inhalers with some relief in symptoms. He went to urgent care yesterday and received a steroid shot which was somewhat helpful. He is also just finishing up a steroid taper. Today he started to notice swelling in his lower extremities which has never happened before. The left lower extremity is painful, however this has been painful for a couple of months as well. Describes this as a burning sensation in the thigh. Denies any history of blood clots or CHF. Denies any chest pain associated with his symptoms. MD Complaint: shortness of breath - Related Data Home Medications Medication Instructions Recorded Confirmed Acetaminophen Tab [Tylenol Tab] 500 mg PO Q6H PRN 04/26/24 04/26/24 Albuterol Nebulized [Ventolin 2.5 mg INHALATION RT-Q8H PRN 04/26/24 04/26/24 Nebulized] Albuterol Sulfate [Ventolin HFA] 2 puff INHALATION RT-Q4H PRN 04/26/24 04/26/24 Fluticasone/Umeclidin/Vilanter 1 puff INHALATION RT-BID 04/26/24 04/26/24 [Trelegilles Ellipta 100-62.5-25] Ipratropium-Albuterol Nebulize 3 ml INHALATION RT-QID PRN 04/26/24 04/26/24 [Duoneb 0.5 mg-3 mg/3 ml Soln] diazePAM [Valium] 5 mg PO TID PRN 04/26/24 04/26/24 predniSONE 5 mg PO DIRECTED 04/26/24 04/26/24 predniSONE [Deltasone] See Taper PO DAILY 04/26/24 04/26/24 Previous Rx's Medication Instructions Recorded Azithromycin [Zithromax] 250 mg PO DIRECTED 5 Days #6 tab 04/26/24 Ipratropium [place] [Atrovent Hfa] 2 puff INHALATION RT-QID PRN #1 04/26/24 each Ipratropium-Albuterol Nebulize 3 ml INHALATION Q4-6H PRN #90 ml 04/26/24 [Duoneb 0.5 mg-3 mg/3 ml Soln] predniSONE 50 mg PO DAILY 5 Days #5 tab 04/26/24 Allergies Allergy/AdvReac Type Severity Reaction Status Date / Time No Known Allergies Allergy Verified 04/26/24 19:47 Review of Systems ROS Statement: Those systems with pertinent positive or pertinent negative responses have been documented in the HPI. ROS Other: All systems not noted in ROS Statement are negative. Past Medical History Past Medical History: COPD Additional Past Medical History / Comment(s): tia's History of Any Multi-Drug Resistant Organisms: None Reported Past Surgical History: Hernia Repair Past Psychological History: No Psychological Hx Reported Smoking Status: Former smoker Past Alcohol Use History: None Reported Past Drug Use History: Cocaine General Exam Limitations: no limitations General appearance: alert, in no apparent distress Head exam: Present: atraumatic, normocephalic, normal inspection Respiratory exam: Present: decreased breath sounds, prolonged expiratory Cardiovascular Exam: Present: regular rate, normal rhythm, normal heart sounds. Absent: systolic murmur, diastolic murmur, rubs, gallop, clicks Extremities exam: Present: other (Pitting edema around the bilateral ankles. Minor tenderness on the left side. 2+ DP and PT pulses bilaterally.) Neurological exam: Present: alert, oriented X3, CN II-XII intact Psychiatric exam: Present: normal affect, normal mood Skin exam: Present: warm, dry, intact, normal color. Absent: rash Course Vital Signs 04/26/24 04/26/24 04/26/24 19:12 19:26 19:49 Temperature 97.9 F Pulse Rate 82 73 Respiratory 26 H 18 Rate Blood Pressure 123/77 O2 Sat by Pulse 95 Oximetry 04/26/24 04/26/24 19:56 21:06 Temperature Pulse Rate 77 75 Respiratory 16 Rate Blood Pressure 123/84 O2 Sat by Pulse 95 Oximetry Medical Decision Making - Medical Decision Making This is a 58-year-old male who presents to the emergency department for shortness of breath and lower extremity swelling. Was pt. sent in by a medical professional or institution? @ -No Did you speak to anyone other than the patient for history? @ -No Did you review nursing and triage notes? @ -Yes, and I agree, it is accurate with regards to the patient's symptoms. Were old charts reviewed? @ -No Differential Diagnosis? @ -Differential Dyspnea: Coronary syndrome, arrhythmia, tamponade, asthma, COPD, pulmonary embolism, pneumonia, pneumothorax, pulmonary effusion, anaphylaxis, diabetic ketoacidosis, flailed chest, pulmonary contusion, diaphragmatic rupture, anemia, neuromuscular, this is not meant to be an all-inclusive list. EKG interpreted by me (3pts min.)? @ -EKG interpreted by me demonstrating the following: Sinus rhythm. Ventricular rate 77 bpm, AR interval 145 ms, QRS duration 97 ms, QTc 374 ms. X-rays interpreted by me (1pt min.)? @ -Chest x-ray obtained, my interpretation identifies no localized consolidations or infiltrates. CT interpreted by me (1pt min.)? @ -Not obtained U/S interpreted by me (1pt. min.)? @ -Duplex ultrasound of the bilateral lower extremities obtained. My interpretation identifies no evidence of a DVT. What testing was considered but not performed? (CT, X-rays, U/S, labs)? Why? @ -None What meds were considered but not given? Why? @ -None Did you discuss the management of the patient with other professionals? @ -No Did you reconcile home meds? @ -No Was smoking cessation discussed for >3mins.? @ -I discussed smoking cessation for greater than 3 minutes. The risk of smoking were discussed with the patient including but not limited to risks of cancer, stroke, coronary artery disease and COPD. Also discussed with patient were multiple methods of quitting smoking. Lastly we discussed the financial cost of smoking. Was critical care preformed (if so, how long)? @ -No Were there social determinants of health that impacted care today? How? (Homelessness, low income, unemployed, alcoholism, drug addiction, transportation, low edu. Level, literacy, decrease access to med. care, senior care, rehab)? @ -No Was there de-escalation of care discussed even if they declined? (Discuss DNR or withdrawal of care, Hospice)? @ -No What co-morbidities impacted this encounter? (DM, HTN, Smoking, COPD, CAD, Cancer, CVA, Hep., AIDS, mental health diagnosis, sleep apnea, morbid obesity)? @ -COPD, smoking Was patient admitted / discharged? @ -Discharged. Lab work demonstrated leukocytosis, which may be secondary to steroid use. D-dimer and troponin negative. BNP also negative for signs of CHF. Chest x-ray reveals no acute process. Duplex ultrasound of the bilateral lower extremities is negative for a DVT. Patient did not have any wheezing on exams, but did have decreased aeration. He was given 125 mg of Solu-Medrol and a DuoNeb breathing treatment. Patient states that he did feel significantly better following those medications. Given that he is already using nebulizer treatments and is finishing up a steroid taper at home, I did offer admission for COPD exacerbation. Patient however refused and states that he had to take care of his pets and felt better. Will treat patient as a COPD exacerbation with azithromycin and a short course of steroids at a bit of a higher dose. Refill on DuoNeb breathing treatments provided. He also requested a refill on his Atrovent inhaler which was provided. Patient given strict return parameters and advised to have close follow up with his PCP. Undiagnosed new problem with uncertain prognosis? @ -None Drug Therapy requiring intensive monitoring for toxicity (Heparin, Nitro, Insul in, Cardizem)? @ -None Were any procedures done? @ -None Diagnosis/symptom? @ -COPD exacerbation Acute, or Chronic, or Acute on Chronic? @ -Acute on chronic Uncomplicated (without systemic symptoms) or Complicated (systemic symptoms)? @ -Uncomplicated Side effects of treatment? @ -None Exacerbation, Progression, or Severe Exacerbation] @ -Exacerbation Poses a threat to life or bodily function? @ -Unlikely Return precautions reviewed in depth, the patient is instructed to return to the emergency department with any new, worsening, or concerning symptoms. Patient verbalized understanding. This case was discussed in detail with the attending ED physician, Dr. Torres. Presentation, findings, and treatment plan discussed in detail as well. - Lab Data Result diagrams: 04/26/24 19:04/26/24 19: Lab Results 04/26/24 04/26/24 04/26/24 Range/Units 19:26 19: 19: WBC 19.4 H (3.8-10.6) k/uL RBC 4.57 (4.30-5.90) m/uL Hgb 13.8 (13.0-17.5) gm/dL Hct 42.7 (39.0-53.0) % MCV 93.6 (80.0-100.0) fL MCH 30.3 (25.0-35.0) pg MCHC 32.4 (31.0-37.0) g/dL RDW 13.1 (11.5-15.5) % Plt Count 337 (150-450) k/uL MPV 7.3 Neutrophils % 86 % Lymphocytes % 8 % Monocytes % 5 % Eosinophils % 1 % Basophils % 0 % Neutrophils # 16.7 H (1.3-7.7) k/uL Lymphocytes # 1.5 (1.0-4.8) k/uL Monocytes # 0.9 (0-1.0) k/uL Eosinophils # 0.2 (0-0.7) k/uL Basophils # 0.0 (0-0.2) k/uL PT 10.0 (10.0-12.5) sec INR 0.9 (<1.2) APTT 20.9 L (22.0-30.0) sec D-Dimer 0.20 (<0.60) mg/L FEU Sodium 142 (137-145) mmol/L Potassium 4.3 (3.5-5.1) mmol/L Chloride 110 H (98-107) mmol/L Carbon Dioxide 24 (22-30) mmol/L Anion Gap 8 mmol/L BUN 20 (9-20) mg/dL Creatinine 0.79 (0.66-1.25) mg/dL Est GFR (CKD-EPI)AfAm >90 (>60 ml/min/1.73 sqM) Est GFR (CKD-EPI)NonAf >90 (>60 ml/min/1.73 sqM) Glucose 139 H (74-99) mg/dL Plasma Lactic Acid Toney (0.7-2.0) mmol/L Calcium 9.6 (8.4-10.2) mg/dL Total Bilirubin 0.4 (0.2-1.3) mg/dL AST 26 (17-59) U/L ALT 27 (4-49) U/L Alkaline Phosphatase 100 (38-126) U/L Troponin I (0.000-0.034) ng/mL NT-Pro-B Natriuret Pep 54 pg/mL Total Protein 6.3 (6.3-8.2) g/dL Albumin 4.1 (3.5-5.0) g/dL 04/26/24 04/26/24 Range/Units 19:26 19:26 WBC (3.8-10.6) k/uL RBC (4.30-5.90) m/uL Hgb (13.0-17.5) gm/dL Hct (39.0-53.0) % MCV (80.0-100.0) fL MCH (25.0-35.0) pg MCHC (31.0-37.0) g/dL RDW (11.5-15.5) % Plt Count (150-450) k/uL MPV Neutrophils % % Lymphocytes % % Monocytes % % Eosinophils % % Basophils % % Neutrophils # (1.3-7.7) k/uL Lymphocytes # (1.0-4.8) k/uL Monocytes # (0-1.0) k/uL Eosinophils # (0-0.7) k/uL Basophils # (0-0.2) k/uL PT (10.0-12.5) sec INR (<1.2) APTT (22.0-30.0) sec D-Dimer (<0.60) mg/L FEU Sodium (137-145) mmol/L Potassium (3.5-5.1) mmol/L Chloride (98-107) mmol/L Carbon Dioxide (22-30) mmol/L Anion Gap mmol/L BUN (9-20) mg/dL Creatinine (0.66-1.25) mg/dL Est GFR (CKD-EPI)AfAm (>60 ml/min/1.73 sqM) Est GFR (CKD-EPI)NonAf (>60 ml/min/1.73 sqM) Glucose (74-99) mg/dL Plasma Lactic Acid Toney 1.5 (0.7-2.0) mmol/L Calcium (8.4-10.2) mg/dL Total Bilirubin (0.2-1.3) mg/dL AST (17-59) U/L ALT (4-49) U/L Alkaline Phosphatase (38-126) U/L Troponin I <0.012 (0.000-0.034) ng/mL NT-Pro-B Natriuret Pep pg/mL Total Protein (6.3-8.2) g/dL Albumin (3.5-5.0) g/dL - Radiology Data Radiology results: report reviewed, image reviewed Disposition Clinical Impression: Nicotine dependence, COPD exacerbation Disposition: HOME SELF-CARE Instructions (If sedation given, give patient instructions): COPD (Chronic Obstructive Pulmonary Disease) (ED) Additional Instructions: Return to the emergency department with any new, worsening, or concerning symptoms. Take the prednisone daily for 5 days. Take the antibiotic as prescribed for 5 days. Use the DuoNeb breathing treatments every 4-6 hours as needed. Use the Atrovent inhaler up to 4 times daily. Follow up with your primary care provider in 1-2 days. Prescriptions: Ipratropium [place] [Atrovent Hfa] 2 puff INHALATION RT-QID PRN #1 each PRN Reason: Shortness Of Breath Ipratropium-Albuterol Nebulize [Duoneb 0.5 mg-3 mg/3 ml Soln] 3 ml INHALATION Q4-6H PRN #90 ml PRN Reason: Shortness Of Breath predniSONE 50 mg PO DAILY 5 Days #5 tab Azithromycin [Zithromax] 250 mg PO DIRECTED 5 Days #6 tab Is patient prescribed a controlled substance at d/c from ED?: No Referrals: Zachary Paris MD [Primary Care Provider] - 1-2 days
[2024-04-26 19:33] LABS: Basophils % (A) 0 %; Eosinophils # (A) 0.2 k/uL (0-0.7); Eosinophils % (A) 1 %; HCT 42.7 % (39.0-53.0); HGB 13.8 gm/dL (13.0-17.5); Lymphocytes # (A) 1.5 k/uL (1.0-4.8); Lymphocytes % (A) 8 %; MCH 30.3 pg (25.0-35.0); MCHC 32.4 g/dL (31.0-37.0); MCV 93.6 fL (80.0-100.0); Mean Platelet Volume 7.3; Monocytes # (A) 0.9 k/uL (0-1.0); Monocytes % (A) 5 %; Neutrophils # (A) 16.7 k/uL (1.3-7.7); Neutrophils % (A) 86 %; Platelet Count 337 k/uL (150-450); RBC 4.57 m/uL (4.30-5.90); RDW 13.1 % (11.5-15.5); WBC 19.4 k/uL (3.8-10.6)
[2024-04-26] MEDS: IPRATROPIUM-ALBUTEROL 3 ML NEB INHALATION STA (19:47)
[2024-04-26 19:54] LABS: INR 0.9 (<1.2)
[2024-04-26 19:57] LABS: Partial Thromboplastin Time 20.9 sec (22.0-30.0)
[2024-04-26 20:09] LABS: ALT 27 U/L (4-49); AST 26 U/L (17-59); African American GFR (CKD) >90 (>60 ml/min/1.73 sqM); Albumin 4.1 g/dL (3.5-5.0); Alkaline Phosphatase 100 U/L (38-126); Anion Gap 8 mmol/L; Blood Urea Nitrogen 20 mg/dL (9-20); Calcium 9.6 mg/dL (8.4-10.2); Carbon Dioxide 24 mmol/L (22-30); Chloride 110 mmol/L (98-107); Glucose 139 mg/dL (74-99); Non-African American GFR(CKD) >90 (>60 ml/min/1.73 sqM); Potassium 4.3 mmol/L (3.5-5.1); Sodium 142 mmol/L (137-145); Total Bilirubin 0.4 mg/dL (0.2-1.3); Total Protein 6.3 g/dL (6.3-8.2)
[2024-04-26 20:18] LABS: NT-Pro-B-Type Natriuretic Pept 54 pg/mL
--- NOTE | 2024-04-26 20:25 | XR ---
EXAMINATION TYPE: XR chest 2V DATE OF EXAM: 04/26/2024 8:03 PM CLINICAL INDICATION:Male, 58 years old with history of difficulty breathing; [facility] COMPARISON: 03/09/2020 TECHNIQUE: XR chest 2V Frontal view of the chest. FINDINGS: Lungs/Pleura: There is no evidence of pleural effusion, focal consolidation, or pneumothorax. Pulmonary vascularity: Unremarkable. Heart/mediastinum: Cardiomediastinal silhouette is unremarkable. Musculoskeletal: No acute osseous pathology. IMPRESSION: 1. No acute cardiopulmonary disease process. 2. COPD changes.
[2024-04-26] MEDS: AZITHROMYCIN 500 MG TAB PO STA (20:55)
--- NOTE | 2024-04-26 21:03 | US ---
EXAMINATION TYPE: US venous doppler duplex LE DATE OF EXAM: 04/26/2024 7:25 PM COMPARISON: NONE CLINICAL INDICATION: Male, 58 years old with history of Pain and swelling; bilateral ankle swelling a nd SOB. Pt does have CHF. No hx of DVT. Not on blood thinners SIDE PERFORMED: Bilateral TECHNIQUE: The lower extremity deep venous system is examined utilizing real time linear array sonog scotty with graded compression, doppler sonography and color-flow sonography. VESSELS IMAGED: Common Femoral Vein Deep Femoral Vein Greater Saphenous Vein * Femoral Vein Popliteal Vein Small Saphenous Vein * Proximal Calf Veins (* superficial vessels) Right Leg: No evidence for DVT Left Leg: No evidence for DVT IMPRESSION: Grayscale, color doppler, spectral doppler imaging performed of the deep veins of the lo wer extremities. There is normal flow, compressibility, vascular waveforms.
[2024-04-26 21:09] VITALS: BP 123/84; PULSE 75; RESP 16
== END 2024-04-26 21:10 | disposition home or self-care (01) ==
LOC: EC 19:11
DX: J44.1 Chronic obstructive pulmonary disease with (acute) exacerbation (principal); F17.200 Nicotine dependence, unspecified, uncomplicated; F14.90 Cocaine use, unspecified, uncomplicated
CPT/HCPCS: 36415; 94640; 93005; 85379; 83880; 80053; 83605; 84484; 85025; 85610; 85730; 71046; 93970; 99285; 96374; 99406; J2919

== ENCOUNTER 2024-05-01 10:59 | Emergency (ER) | payer OTHER ==
--- NOTE | 2024-05-01 11:28 | ED ---
General Adult HPI - General Chief complaint: Shortness of Breath Stated complaint: SOB, Ankle Swelling Time Seen by Provider: 05/01/24 11:20 Source: patient, RN notes reviewed, old records reviewed Mode of arrival: ambulatory Limitations: no limitations - History of Present Illness Initial comments: Patient is a 58-year-old male present to the emergency department with concerns for difficulty breathing. Symptoms have progressed over the past several days. Patient does have history of similar symptoms previously associated with COPD. Patient was in the emergency department several days ago with similar symptoms. Patient is having some ankle swelling. No calf pain. Patient did have negative ultrasound. Patient does have occasional cough. - Related Data Home Medications Medication Instructions Recorded Confirmed Acetaminophen Tab [Tylenol Tab] 500 mg PO Q6H PRN 04/26/24 05/01/24 Albuterol Nebulized [Ventolin 2.5 mg INHALATION RT-Q8H PRN 04/26/24 05/01/24 Nebulized] Albuterol Sulfate [Ventolin HFA] 2 puff INHALATION RT-Q4H PRN 04/26/24 05/01/24 Fluticasone/Umeclidin/Vilanter 1 puff INHALATION RT-BID 04/26/24 05/01/24 [Trelegy Ellipta 100-62.5-25] diazePAM [Valium] 5 mg PO TID PRN 04/26/24 05/01/24 Azithromycin [Zithromax] See Taper PO DAILY 05/01/24 05/01/24 Ipratropium-Albuterol Nebulize 3 ml INHALATION RT-Q4H PRN 05/01/24 05/01/24 [Duoneb 0.5 mg-3 mg/3 ml Soln] Previous Rx's Medication Instructions Recorded Ipratropium [place] [Atrovent Hfa] 2 puff INHALATION RT-QID PRN #1 04/26/24 each methylPREDNISolone Dose Pack 4 mg PO DIRECTED #21 tab 05/01/24 [Medrol Dose Pack] Allergies Allergy/AdvReac Type Severity Reaction Status Date / Time No Known Allergies Allergy Verified 05/01/24 13:49 Review of Systems ROS Statement: Those systems with pertinent positive or pertinent negative responses have been documented in the HPI. ROS Other: All systems not noted in ROS Statement are negative. Constitutional: Denies: fever Eyes: Denies: eye pain ENT: Denies: ear pain Respiratory: Reports: as per HPI, dyspnea Cardiovascular: Reports: dyspnea on exertion, edema. Denies: chest pain Endocrine: Reports: fatigue Genitourinary: Denies: dysuria Musculoskeletal: Denies: back pain Past Medical History Past Medical History: COPD Additional Past Medical History / Comment(s): tia's History of Any Multi-Drug Resistant Organisms: None Reported Past Surgical History: Hernia Repair Past Psychological History: No Psychological Hx Reported Smoking Status: Former smoker Past Alcohol Use History: None Reported Past Drug Use History: Cocaine General Exam Limitations: no limitations General appearance: alert, in no apparent distress Head exam: Present: normocephalic Eye exam: Present: normal appearance Neck exam: Present: normal inspection Respiratory exam: Present: wheezes, decreased breath sounds Cardiovascular Exam: Present: regular rate, normal rhythm GI/Abdominal exam: Present: soft. Absent: tenderness Extremities exam: Present: pedal edema. Absent: calf tenderness Neurological exam: Present: alert Psychiatric exam: Present: normal affect, normal mood Skin exam: Present: normal color Course Vital Signs 05/01/24 05/01/24 05/01/24 11:14 11:30 12:00 Temperature 97.9 F 98.0 F Pulse Rate 85 72 82 Respiratory 18 16 14 Rate Blood Pressure 120/75 129/69 130/72 O2 Sat by Pulse 95 92 L 92 L Oximetry 05/01/24 05/01/24 05/01/24 12:30 12:36 14:42 Temperature Pulse Rate 71 77 82 Respiratory 24 22 14 Rate Blood Pressure 118/75 O2 Sat by Pulse 93 L Oximetry EKG Findings - EKG Results: EKG: interpreted by ERMD, sinus rhythm, normal axis, normal QRS, normal ST/T Medical Decision Making - Medical Decision Making Was pt. sent in by a medical professional or institution (, PA, MATERIAL CREW SUPERVISOR, urgent care, hospital, or jail...) When possible be specific @ -No Did you speak to anyone other than the patient for history (EMS, parent, family, police, friend...)? What history was obtained from this source @ -No Did you review nursing and triage notes (agree or disagree)? Why? @ -I reviewed and agree with nursing and triage notes Were old charts reviewed (outside hosp., previous admission, EMS record, old EKG, old radiological studies, urgent care reports/EKG's, jail records)? Report findings @ -Previous x-ray reviewed Differential Diagnosis (chest pain, altered mental status, abdominal pain women, abdominal pain men, vaginal bleeding, weakness, fever, dyspnea, syncope, headache, dizziness, GI bleed, back pain, seizure, CVA, palpatations, mental health, musculoskeletal)? @ -Differential Dyspnea: Coronary syndrome, arrhythmia, tamponade, asthma, COPD, pulmonary embolism, pneumonia, pneumothorax, pulmonary effusion, anaphylaxis, diabetic ketoacidosis, flailed chest, pulmonary contusion, diaphragmatic rupture, anemia, neuromuscular, this is not meant to be an all-inclusive list. EKG interpreted by me (3pts min.). @ -As above X-rays interpreted by me (1pt min.). @ -Chest x-ray shows no acute process CT interpreted by me (1pt min.). @ -None done U/S interpreted by me (1pt. min.). @ -None done What testing was considered but not performed or refused? (CT, X-rays, U/S, labs)? Why? @ -None What meds were considered but not given or refused? Why? @ -None Did you discuss the management of the patient with other professionals (professionals i.e. , PA, MATERIAL CREW SUPERVISOR, lab, RT, psych nurse, criminal justice social worker, cigarette carton sealer, teacher, nuclear officer, senior case manager)? Give summary @ -Case was discussed with Dr. Martinez regarding possible admission. Was smoking cessation discussed for >3mins.? @ -No Was critical care preformed (if so, how long)? @ -No Were there social determinants of health that impacted care today? How? (Homelessness, low income, unemployed, alcoholism, drug addiction, transportation, low edu. Level, literacy, decrease access to med. care, [facility], rehab)? @ -No Was there de-escalation of care discussed even if they declined (Discuss DNR or withdrawal of care, Hospice)? DNR status @ -Discussion regarding admission however patient refuses What co-morbidities impacted this encounter? (DM, HTN, Smoking, COPD, CAD, Cancer, CVA, ARF, Chemo, Hep., AIDS, mental health diagnosis, sleep apnea, morbid obesity)? @ -History of COPD Was patient admitted / discharged? Hospital course, mention meds given and route, prescriptions, significant lab abnormalities, going to OR and other pertinent info. @ -Patient presents with shortness of breath and leg edema. Previous ultrasound negative for DVT. Patient reevaluated and feeling much better and request discharge home. Discussion regarding admission however patient refuses. Patient states he will return if symptoms worsen. Undiagnosed new problem with uncertain prognosis? @ -No Drug Therapy requiring intensive monitoring for toxicity (Heparin, Nitro, Insulin, Cardizem)? @ -No Were any procedures done? @ -No Diagnosis/symptom? @ -Leg edema, COPD exacerbation Acute, or Chronic, or Acute on Chronic? @ -Acute, acute on chronic Uncomplicated (without systemic symptoms) or Complicated (systemic symptoms)? @ -Default Side effects of treatment? @ -No Exacerbation, Progression, or Severe Exacerbation? @ -Exacerbation Poses a threat to life or bodily function? How? (Chest pain, [place], MD, pneumonia, PE, COPD, DKA, ARF, appy, cholecystitis, CVA, Diverticulitis, Homicidal, Suicidal, threat to staff... and all critical care pts) @ -No - Lab Data Result diagrams: 05/01/24 12:10 05/01/24 12:10 Lab Results 05/01/24 05/01/24 05/01/24 Range/Units 12:10 12:10 12:10 WBC 14.3 H (3.8-10.6) k/uL RBC 4.56 (4.30-5.90) m/uL Hgb 14.4 (13.0-17.5) gm/dL Hct 43.1 (39.0-53.0) % MCV 94.4 (80.0-100.0) fL MCH 31.5 (25.0-35.0) pg MCHC 33.4 (31.0-37.0) g/dL RDW 13.5 (11.5-15.5) % Plt Count 273 (150-450) k/uL MPV 7.9 Neutrophils % 76 % Lymphocytes % 15 % Monocytes % 4 % Eosinophils % 3 % Basophils % 1 % Neutrophils # 10.9 H (1.3-7.7) k/uL Lymphocytes # 2.1 (1.0-4.8) k/uL Monocytes # 0.6 (0-1.0) k/uL Eosinophils # 0.4 (0-0.7) k/uL Basophils # 0.1 (0-0.2) k/uL PT 9.5 L (10.0-12.5) sec INR 0.8 (<1.2) APTT 22.2 (22.0-30.0) sec Sodium 139 (137-145) mmol/L Potassium 4.4 (3.5-5.1) mmol/L Chloride 105 (98-107) mmol/L Carbon Dioxide 30 (22-30) mmol/L Anion Gap 4 mmol/L BUN 15 (9-20) mg/dL Creatinine 0.64 L (0.66-1.25) mg/dL Est GFR (CKD-EPI)AfAm >90 (>60 ml/min/1.73 sqM) Est GFR (CKD-EPI)NonAf >90 (>60 ml/min/1.73 sqM) Glucose 94 (74-99) mg/dL Plasma Lactic Acid Toney (0.7-2.0) mmol/L Calcium 9.4 (8.4-10.2) mg/dL Magnesium 2.1 (1.6-2.3) mg/dL Total Bilirubin 0.5 (0.2-1.3) mg/dL AST 26 (17-59) U/L ALT 39 (4-49) U/L Alkaline Phosphatase 93 (38-126) U/L Troponin I (0.000-0.034) ng/mL NT-Pro-B Natriuret Pep <20 pg/mL Total Protein 6.2 L (6.3-8.2) g/dL Albumin 4.0 (3.5-5.0) g/dL 05/01/24 05/01/24 Range/Units 12:10 12:10 WBC (3.8-10.6) k/uL RBC (4.30-5.90) m/uL Hgb (13.0-17.5) gm/dL Hct (39.0-53.0) % MCV (80.0-100.0) fL MCH (25.0-35.0) pg MCHC (31.0-37.0) g/dL RDW (11.5-15.5) % Plt Count (150-450) k/uL MPV Neutrophils % % Lymphocytes % % Monocytes % % Eosinophils % % Basophils % % Neutrophils # (1.3-7.7) k/uL Lymphocytes # (1.0-4.8) k/uL Monocytes # (0-1.0) k/uL Eosinophils # (0-0.7) k/uL Basophils # (0-0.2) k/uL PT (10.0-12.5) sec INR (<1.2) APTT (22.0-30.0) sec Sodium (137-145) mmol/L Potassium (3.5-5.1) mmol/L Chloride (98-107) mmol/L Carbon Dioxide (22-30) mmol/L Anion Gap mmol/L BUN (9-20) mg/dL Creatinine (0.66-1.25) mg/dL Est GFR (CKD-EPI)AfAm (>60 ml/min/1.73 sqM) Est GFR (CKD-EPI)NonAf (>60 ml/min/1.73 sqM) Glucose (74-99) mg/dL Plasma Lactic Acid Toney 0.7 (0.7-2.0) mmol/L Calcium (8.4-10.2) mg/dL Magnesium (1.6-2.3) mg/dL Total Bilirubin (0.2-1.3) mg/dL AST (17-59) U/L ALT (4-49) U/L Alkaline Phosphatase (38-126) U/L Troponin I <0.012 (0.000-0.034) ng/mL NT-Pro-B Natriuret Pep pg/mL Total Protein (6.3-8.2) g/dL Albumin (3.5-5.0) g/dL Disposition Clinical Impression: COPD exacerbation, Leg edema Disposition: HOME SELF-CARE Condition: Stable Instructions (If sedation given, give patient instructions): COPD (Chronic Obstructive Pulmonary Disease) (ED), Edema (ED) Additional Instructions: Prescription for steroids sent to pharmacy. Please do follow-up with primary care physician in the next day or 2 for recheck. Return for fever, difficulty breathing, chest pain, worsening or changing symptoms or any other concerns. Prescriptions: methylPREDNISolone Dose Pack [Medrol Dose Pack] 4 mg PO DIRECTED #21 tab Is patient prescribed a controlled substance at d/c from ED?: No Referrals: Zachary Paris MD [Primary Care Provider] - 1-2 days Time of Disposition: 15:02
[2024-05-01] MEDS: IPRATROPIUM-ALBUTEROL 3 ML NEB INHALATION STA (12:30)
[2024-05-01 12:32] LABS: Basophils # (A) 0.1 k/uL (0-0.2); Basophils % (A) 1 %; Eosinophils # (A) 0.4 k/uL (0-0.7); Eosinophils % (A) 3 %; HCT 43.1 % (39.0-53.0); HGB 14.4 gm/dL (13.0-17.5); Lymphocytes # (A) 2.1 k/uL (1.0-4.8); Lymphocytes % (A) 15 %; MCH 31.5 pg (25.0-35.0); MCHC 33.4 g/dL (31.0-37.0); MCV 94.4 fL (80.0-100.0); Mean Platelet Volume 7.9; Monocytes # (A) 0.6 k/uL (0-1.0); Monocytes % (A) 4 %; Neutrophils # (A) 10.9 k/uL (1.3-7.7); Neutrophils % (A) 76 %; Platelet Count 273 k/uL (150-450); RBC 4.56 m/uL (4.30-5.90); RDW 13.5 % (11.5-15.5); WBC 14.3 k/uL (3.8-10.6)
[2024-05-01 12:53] LABS: INR 0.8 (<1.2); Partial Thromboplastin Time 22.2 sec (22.0-30.0); Prothrombin Time 9.5 sec (10.0-12.5)
[2024-05-01 12:57] LABS: ALT 39 U/L (4-49); AST 26 U/L (17-59); African American GFR (CKD) >90 (>60 ml/min/1.73 sqM); Alkaline Phosphatase 93 U/L (38-126); Anion Gap 4 mmol/L; Blood Urea Nitrogen 15 mg/dL (9-20); Calcium 9.4 mg/dL (8.4-10.2); Carbon Dioxide 30 mmol/L (22-30); Chloride 105 mmol/L (98-107); Glucose 94 mg/dL (74-99); Magnesium 2.1 mg/dL (1.6-2.3); Non-African American GFR(CKD) >90 (>60 ml/min/1.73 sqM); Potassium 4.4 mmol/L (3.5-5.1); Sodium 139 mmol/L (137-145); Total Bilirubin 0.5 mg/dL (0.2-1.3); Total Protein 6.2 g/dL (6.3-8.2)
[2024-05-01 13:05] LABS: NT-Pro-B-Type Natriuretic Pept <20 pg/mL
--- NOTE | 2024-05-01 14:10 | XR ---
EXAMINATION TYPE: XR chest 2V DATE OF EXAM: 05/01/2024 1:40 PM CLINICAL INDICATION:Male, 58 years old with history of difficulty breathing; LOCATED WITHIN [facility] COMPARISON: Chest radiograph from 04/26/2024 TECHNIQUE: XR chest 2V Frontal and lateral views of the chest. FINDINGS: Lungs/Pleura: There is no evidence of pleural effusion, focal consolidation, or pneumothorax. Pulmonary vascularity: Unremarkable. Heart/mediastinum: Cardiomediastinal silhouette is unremarkable. Musculoskeletal: No acute osseous pathology. Other findings: None Lines/Tubes: IMPRESSION: No acute cardiopulmonary disease/process.
[2024-05-01] MEDS: methylPREDNISolone SOD SUCCI 125 MG/2 ML VIAL IV STA (15:05)
[2024-05-01] MEDS: FUROSEMIDE 10 MG/ML 4 ML VIAL IV STA (15:08)
[2024-05-01 15:42] VITALS: BP 133/92; PULSE 67; RESP 16; TEMP 98.1
== END 2024-05-01 15:43 | disposition home or self-care (01) ==
LOC: EC 10:59
DX: J44.1 Chronic obstructive pulmonary disease with (acute) exacerbation (principal); R60.0 Localized edema; Z87.891 Personal history of nicotine dependence
CPT/HCPCS: 36415; 94640; 93005; 83880; 80053; 83605; 83735; 84484; 85025; 85610; 85730; 71046; 99285; 96374; 96375; J1940; J2919